=== PATIENT | female | born 1980 | race Caucasian/White ===

== ENCOUNTER 2017-09-06 07:12 | Day surgery (SDC) | payer OTHER ==
[~2017-09-06 07:12] MED LIST: SYNTHROID75 MCG PO
== END 2017-09-06 10:35 | disposition home or self-care (01) ==
LOC: CIR.AMB 07:12
DX: O02.1 Missed abortion (principal); Z3A.01 Less than 8 weeks gestation of pregnancy

== ENCOUNTER 2018-05-23 11:42 | Outpatient (CLI) | payer OTHER | END 2018-05-23 12:34 | disposition home or self-care (01) | LOC: NST 11:42 | DX: Z34.83 Encounter for supervision of other normal pregnancy, third trimester (principal) ==

== ENCOUNTER 2018-05-24 10:50 | Outpatient (CLI) | payer OTHER | END 2018-05-24 11:40 | disposition home or self-care (01) | LOC: NST 10:50 | DX: Z34.83 Encounter for supervision of other normal pregnancy, third trimester (principal) ==

== ENCOUNTER 2018-05-25 14:12 | Outpatient (CLI) | payer OTHER | END 2018-05-25 15:40 | disposition home or self-care (01) | LOC: NST 14:12 | DX: Z34.83 Encounter for supervision of other normal pregnancy, third trimester (principal) ==

== ENCOUNTER 2018-06-29 16:43 | Inpatient (IN) | payer OTHER ==
[~2018-06-29] VITALS: Ht 162.6 cm; Wt 3.6 kg
[2018-07-10] MEDS ORDERED: OBSTETRIX EC C1 EACH PO (15:43)
[2018-07-10] MEDS ORDERED: [UNRECOGNIZED DRUG - OTHER] PO (15:44)
[2018-07-11] MEDS ORDERED: INTEGRA PLUS C1 EACH PO (16:36)
[2018-07-11] MEDS ORDERED: NIFEDIPINE ER30 M1 PO (16:38)
[2018-07-14] MEDS ORDERED: KETO10TA2 PO (09:53)
[2018-07-14] MEDS ORDERED: OXYC1TAB9 PO (09:54)
== END 2018-07-14 14:31 | disposition home or self-care (01) | DRG 788 ==
LOC: O/R 07-11 08:15 → OB/GYN 07-11 08:15
PROVIDERS: ADMIT Obstetrics & Gynecology Maternal & Fetal Medicine
PROC: 4A1HXCZ Monitoring of Products of Conception, Cardiac Rate, External Approach (ICD-10-PCS; 2018-07-11)
PROC: 10D00Z1 Extraction of Products of Conception, Low, Open Approach (ICD-10-PCS; principal; 2018-07-11 15:15)
DX: O82 Encounter for cesarean delivery without indication (principal); O64.1XX0 Obstructed labor due to breech presentation, not applicable or unspecified; Z3A.39 39 weeks gestation of pregnancy; Z37.0 Single live birth